=== PATIENT | male | born 1990 | race Caucasian/White ===

== ENCOUNTER 2018-09-22 23:28 | Emergency (ER) | payer SELFPAY ==
[~2018-09-22] VITALS: Ht 162.6 cm; Wt 79.4 kg
[2018-09-22 23:28] VITALS: BP 142/75
--- NOTE | 2018-09-23 01:26 | NUR ---
PT TO ED WITH C/O RT SIDED HEADACHE X 0500. PT DENIES N/V AT THIS TIME. PT REPORTS MILD BLURRY VISION. PT ALERT TO NAME, BIRTHDAY, PLACE, AND EVENT. PT PLACED INTO BED, PENDPHILIPP DUNHAM. PMH--DENIES NKDA.
[2018-09-23] MEDS ORDERED: KETOROLAC 60 MG/2 ML VIAL IM ONE (02:35)
--- NOTE | 2018-09-23 04:15 | NUR ---
ER AWARE OF PT STATUS. PT STATES THAT HE IS FEELING BETTER.
[2018-09-23 05:20] VITALS: BP 139/81
== END 2018-09-23 05:20 | disposition home or self-care (01) ==
LOC: MED 23:28
DX: R51 Headache (principal)
CPT/HCPCS: 96372; 99283; J1885